=== PATIENT | male | born 1960 | race Caucasian/White ===

== ENCOUNTER 2019-09-05 09:18 | Outpatient (CLI) | payer BC, OTHER, SELFPAY ==
[2019-09-05 10:10] LABS: Bilirubin,Total 1.2 mg/dL (0.00-1.00)
== END 2019-09-05 09:19 | disposition home or self-care (01) ==
LOC: CHSLAB 09:21
PROVIDERS: PCP Family Medicine; Visit Provider Family Medicine
DX: R17 Unspecified jaundice (principal)
CPT/HCPCS: 36415; 82247

== ENCOUNTER 2020-01-02 09:03 | Outpatient (CLI) | payer BC, OTHER, SELFPAY ==
[2020-01-02 09:24] LABS: Hemoglobin A1C 5.9 % (<5.7)
[2020-01-02 09:48] LABS: Alanine Aminotransferase 32 U/L (16-63); Albumin Level 3.7 g/dL (3.4-5.0); Alkaline Phosphatase 86 U/L (46-116); Aspartate Amino Transferase 21 U/L (15-37); Bilirubin Direct 0.2 mg/dL (0-0.2); Bilirubin,Total 1.1 mg/dL (0.00-1.00); Blood Urea Nitrogen 22 mg/dL (7-18); Calcium 9.1 mg/dL (8.5-10.1); Carbon Dioxide 32 mmol/L (21-32); Chloride 103 mmol/L (98-108); Estimated Glomerular Filt Rate > 60; Glucose 92 mg/dL (70-99); Osmolality Calculated 295 mOsm/kg (285-295); Sodium 141 mmol/L (136-145); Total Protein 7.1 g/dL (6.4-8.2)
== END 2020-01-02 09:04 | disposition home or self-care (01) ==
LOC: CHSLAB 09:05
PROVIDERS: PCP Family Medicine; Visit Provider Family Medicine
DX: R73.01 Impaired fasting glucose (principal); I10 Essential (primary) hypertension; R17 Unspecified jaundice
CPT/HCPCS: 36415; 80053; 82248; 83036

== ENCOUNTER 2020-04-01 11:54 | Outpatient (CLI) | payer BC, OTHER, SELFPAY ==
--- NOTE | ~2020-04-01 | XR_ITS ---
XR shoulder LT min 2V DATE: 04/01/2020 12:27 INDICATION: Left shoulder pain following bladder injury TECHNIQUE: 4 views COMPARISON: None FINDINGS: No fracture, dislocation, periosteal reaction or bone destruction or abnormal soft tissue c alcification of the left shoulder. IMPRESSION: No significant abnormality Reviewed, dictated and finalized at location A. IMPRESSION: No significant abnormality
== END 2020-04-01 11:55 | disposition home or self-care (01) ==
PROVIDERS: PCP Family Medicine
DX: M25.512 Pain in left shoulder (principal)
CPT/HCPCS: 73030

== ENCOUNTER 2020-08-12 07:37 | Outpatient (CLI) | payer BC, OTHER, SELFPAY ==
[2020-08-12 08:43] LABS: Hemoglobin A1C 5.6 % (<5.7)
[2020-08-12 09:31] LABS: Alanine Aminotransferase 36 U/L (16-63); Albumin Level 3.7 g/dL (3.4-5.0); Alkaline Phosphatase 86 U/L (46-116); Anion Gap 7 mmol/L (8-16); Aspartate Amino Transferase 22 U/L (15-37); Bilirubin Direct 0.3 mg/dL (0-0.2); Bilirubin,Total 1.4 mg/dL (0.00-1.00); Blood Urea Nitrogen 21 mg/dL (7-18); Calcium 8.7 mg/dL (8.5-10.1); Carbon Dioxide 30 mmol/L (21-32); Chloride 105 mmol/L (98-108); Cholesterol 156 mg/dL (0-200); Estimated Glomerular Filt Rate > 60; Glucose 98 mg/dL (70-99); HDL Direct 59 mg/dL (40-60); LDL Cholesterol Calculated 83 mg/dL (<130); Osmolality Calculated 297 mOsm/kg (285-295); Potassium 4.2 mmol/L (3.5-5.1); Prostate Specific Antigen 4.1 ng/mL (< OR = 4.0); Sodium 142 mmol/L (136-145); Total Protein 6.8 g/dL (6.4-8.2); Triglycerides 70 mg/dL (0-150)
== END 2020-08-12 07:38 | disposition home or self-care (01) ==
PROVIDERS: PCP Family Medicine; Visit Provider Family Medicine
DX: R73.01 Impaired fasting glucose (principal); Z12.5 Encounter for screening for malignant neoplasm of prostate; R17 Unspecified jaundice; I10 Essential (primary) hypertension; E78.5 Hyperlipidemia, unspecified
CPT/HCPCS: 36415; 80053; 80061; 82248; 83036; 84153; G0103

== ENCOUNTER 2020-09-04 12:17 | Outpatient (CLI) | payer BC, OTHER, SELFPAY ==
[2020-09-04 13:09] LABS: Anion Gap 5 mmol/L (8-16); Blood Urea Nitrogen 23 mg/dL (7-18); Calcium 9.6 mg/dL (8.5-10.1); Carbon Dioxide 31 mmol/L (21-32); Chloride 101 mmol/L (98-108); Estimated Glomerular Filt Rate > 60; Glucose 96 mg/dL (70-99); Osmolality Calculated 287 mOsm/kg (285-295); Potassium 4.1 mmol/L (3.5-5.1); Sodium 137 mmol/L (136-145)
== END 2020-09-04 12:18 | disposition home or self-care (01) ==
LOC: CHSLAB 12:21
PROVIDERS: PCP Family Medicine; Visit Provider Family Medicine
DX: I10 Essential (primary) hypertension (principal)
CPT/HCPCS: 36415; 80048

== ENCOUNTER 2020-09-29 15:05 | Outpatient (CLI) | payer BC, OTHER, SELFPAY ==
[2020-09-29 15:23] LABS: Appearance Urine Clear (Clear); Bilirubin Urine Negative (Negative); Color Urine Orange (Yellow); Glucose Urine UA Negative (Negative); Ketones Urine Negative (Negative); Leukocyte Esterase Ur Negative (Negative); Nitrate Urine Negative (Negative); Protein Urine Negative (Negative); Urobilinogen Urine 0.2 mg/dL (0.2-1.0); pH Urine 6.5 (5.0-8.0)
[2020-09-29 15:56] LABS: Add Urine Microscopic? YES; Blood Urine Trace-Lysed (Negative)
[2020-09-29 15:57] LABS: Bacteria Urine None seen /hpf; RBC Urine 0-2 /hpf (0-2); Squamous Epithelial Cell Urine Few /hpf (Few); WBC Urine 0-3 /hpf (0-3)
[2020-09-29 16:35] LABS: Prostate Specific Antigen 2.3 ng/mL (< OR = 4.0)
== END 2020-09-29 15:06 | disposition home or self-care (01) ==
LOC: CHSLAB 15:08
PROVIDERS: PCP Family Medicine; Visit Provider Urology
DX: N20.0 Calculus of kidney (principal); R97.20 Elevated prostate specific antigen [PSA]
CPT/HCPCS: 36415; 81001; 84153

== ENCOUNTER 2020-12-14 10:37 | Outpatient (CLI) | payer BC, OTHER, SELFPAY ==
[2020-12-14 11:45] LABS: Anion Gap 7 mmol/L (8-16); Blood Urea Nitrogen 25 mg/dL (7-18); Calcium 9.4 mg/dL (8.5-10.1); Carbon Dioxide 30 mmol/L (21-32); Chloride 102 mmol/L (98-108); Estimated Glomerular Filt Rate > 60; Glucose 94 mg/dL (70-99); Osmolality Calculated 292 mOsm/kg (285-295); Potassium 4.2 mmol/L (3.5-5.1); Sodium 139 mmol/L (136-145)
== END 2020-12-14 10:38 | disposition home or self-care (01) ==
LOC: CHSLAB 10:40
PROVIDERS: PCP Family Medicine; Visit Provider Family Medicine
DX: I10 Essential (primary) hypertension (principal)
CPT/HCPCS: 36415; 80048

== ENCOUNTER 2021-06-16 07:12 | Outpatient (CLI) | payer BC, OTHER, SELFPAY ==
[2021-06-16 07:43] LABS: Hemoglobin A1C 6.3 % (<5.7)
[2021-06-16 09:10] LABS: Alanine Aminotransferase 41 U/L (16-63); Albumin Level 3.6 g/dL (3.4-5.0); Alkaline Phosphatase 81 U/L (46-116); Anion Gap 7 mmol/L (8-16); Aspartate Amino Transferase 18 U/L (15-37); Bilirubin,Total 0.9 mg/dL (0.00-1.00); Blood Urea Nitrogen 16 mg/dL (7-18); Calcium 8.9 mg/dL (8.5-10.1); Carbon Dioxide 30 mmol/L (21-32); Chloride 103 mmol/L (98-108); Cholesterol 168 mg/dL (0-200); Estimated Glomerular Filt Rate > 60; Glucose 96 mg/dL (70-99); HDL Direct 52 mg/dL (40-60); LDL Cholesterol Calculated 96 mg/dL (<130); Osmolality Calculated 291 mOsm/kg (285-295); Potassium 4.2 mmol/L (3.5-5.1); Sodium 140 mmol/L (136-145); Total Protein 7.2 g/dL (6.4-8.2); Triglycerides 101 mg/dL (0-150)
== END 2021-06-16 07:13 | disposition home or self-care (01) ==
LOC: CHSLAB 07:15
PROVIDERS: PCP Family Medicine; Visit Provider Family Medicine
DX: E78.5 Hyperlipidemia, unspecified (principal); R73.01 Impaired fasting glucose; I10 Essential (primary) hypertension
CPT/HCPCS: 36415; 80053; 80061; 83036

== ENCOUNTER 2023-03-30 02:10 | Day surgery (SDC) | payer MEDICARE, BC, SELFPAY ==
[2023-03-21 14:44] VITALS: BMI 32.7
[2023-03-30 06:17] VITALS: BP 152/64; PULSE 66; RESP 18; TEMP 36.7; O2SAT 97
[2023-03-30] MEDS: LACTATED RINGERS 1,000 ML 150 ML IV CONT (06:21)
--- NOTE | 2023-03-30 07:20 | WPDANESEPPF ---
Anes - Initial Pre Proc Eval Procedure: Operation Date: 03/30/23 07:30 Proposed Procedures p Screening Colonoscopy - Adrian Hutchins DO Date/Time: 03/30/23 07:20 Surgeon: Adrian Hutchins DO Pre Op Diagnosis: neoplasm screening Patient Data Age: 63 Gender: M Height: 1.75 m Weight: 99.6 kg Last Vital Signs Temp 98.1 F 03/30/23 06:17 Pulse 66 03/30/23 06:17 Resp 18 03/30/23 06:17 BP 152/64 H 03/30/23 06:17 Pulse Ox 97 03/30/23 06:17 O2 Del Method Room Air 03/30/23 06:17 Allergies Allergy/AdvReac Type Severity Reaction Status Date / Time No Known Allergies Allergy Verified 03/30/23 06:16 Home Medications Medication Instructions Recorded Confirmed Type amlodipine 10 mg tablet 10 mg PO DAILY 03/21/23 03/30/23 History aspirin 81 mg capsule 81 mg PO 3XW 03/21/23 03/30/23 History atorvastatin 10 mg tablet 10 mg PO DAILY 03/21/23 03/30/23 History irbesartan 300 mg tablet 300 mg PO DAILY 03/21/23 03/30/23 History Patient hx anesthesia problems: none Family hx anesthesia problems: none Results Review: All pre-operative results and documents have been reviewed as part of the pre-operative evaluation. [facility] Social History Social History (System 11/26/19 @ 13:15 by Heydi Schmitt) Smoking status: Former smoker Tobacco type: cigarettes Alcohol intake: never Substance use: never Substance use type: does not use Living arrangements: with family Spiritual care concerns: No Anes - Eval Final PreProcedure Day of Procedure 03/30/23 07:20 Patient weight: normal Heart: regular rate and rhythm Lungs: clear to auscultation Airway: Mallampati scale class II Neurological: alert and oriented Last oral intake: >/= 8 hours ASA classification: II Emergent: no Anesthetic plan: proceed Anesthesia type and monitoring: general GIVS and standard monitoring Results Review: All pre-operative results and documents have been reviewed as part of the pre-operative evaluation. Informed Consent: The patient's anesthetic plan and its attendant risks and benefits were discussed with the patient/family/POA. Questions were solicited and answers provided to the satisfaction of the patient/family/POA.
--- NOTE | 2023-03-30 07:38 | PM.IMHP ---
H&P: HPI History of Present Illness Date/Time: 03/30/23 07:38 Chief Complaint: Screening for colorectal cancer, history of colon polyps, family history of colon Narrative: this is a 63-year-old man who presents for colonoscopy. His last colonoscopy was about 5 or 6 years ago. He denies any hematochezia or melena. He does have a history of polyps and a family history of colon cancer in his father. Review of Systems Review of Systems: All systems reviewed & are unremarkable except as noted in HPI and below Constitutional: Constitutional: Denies chills, Denies fever(s), Denies headache(s) and Denies weight loss Eyes: Eyes: Denies change in vision ENT: Denies dizziness, Denies headache(s), Denies neck mass and Denies throat swelling Cardiovascular: Cardiovascular: Denies chest pain, Denies lightheadedness and Denies dyspnea Respiratory: Respiratory: Denies cough, Denies dyspnea and Denies wheezing Gastrointestinal: Gastrointestinal: Denies abdominal pain, Denies change in bowel habits, Denies nausea and Denies vomiting Genitourinary: Genitourinary: Denies hematuria and Denies dysuria Musculoskeletal: Musculoskeletal: Reports as per HPI Integumentary/Breasts: Skin/Breast: Reports as per HPI Neurologic: Denies dizziness and Denies headache(s) Allergic/Immunologic: Allergic/Immunologic: Denies throat swelling and Denies wheezing [facility] Social History Social History (System 11/26/19 @ 13:15 by Heydi Schmitt) Smoking status: Former smoker Tobacco type: cigarettes Alcohol intake: never Substance use: never Substance use type: does not use Living arrangements: with family Spiritual care concerns: No Meds Home Medications and Allergies Home Medications Medication Instructions Recorded Confirmed Type amlodipine 10 mg tablet 10 mg PO DAILY 03/21/23 03/30/23 History aspirin 81 mg capsule 81 mg PO 3XW 03/21/23 03/30/23 History atorvastatin 10 mg tablet 10 mg PO DAILY 03/21/23 03/30/23 History irbesartan 300 mg tablet 300 mg PO DAILY 03/21/23 03/30/23 History Allergies Allergy/AdvReac Type Severity Reaction Status Date / Time No Known Allergies Allergy Verified 03/30/23 06:16 Vital Signs Vital Signs - 24 hr 03/30/23 06:17 Temperature 36.7 C Pulse Rate 66 Respiratory Rate 18 Blood Pressure 152/64 H Pulse Oximetry 97 Oxygen Delivery Room Air Exam Const: General: no acute distress and alert Orientation/consciousness: patient oriented x3 HENMT: Head: normocephalic and atraumatic Ears: hearing grossly normal bilaterally Face/Nose/Sinus: Normal nares present Mouth: Yes Normal oral and palatal mucosa present Eyes: Periorbital: periorbital findings normal Sclera: sclerae normal EOM: EOMs intact bilaterally Neck: Neck: normal visual inspection, no lymphadenopathy and trachea midline Chest: Chest palpation & inspection: normal inspection of the chest Resp: Effort & Inspection: normal respiratory effort Auscultation: clear to auscultation bilaterally Cardio: Jugular venous distension: no JVD Rate: regular rate Rhythm: regular rhythm Heart sounds: S1 normal heart sound present and S2 normal heart sound present Peripheral pulses: Peripheral pulses 2+ throughout GI: Inspection: normal to inspection GI Palp: Yes Soft to palpation, No Tenderness to palpation present (GI), No Guarding due to palpation present (GI) and No Rebound tenderness present Percussion: Yes normal to percussion Auscultation: normal bowel sounds : General: Yes no CVA tenderness Back/Spine/Pelvis: Back: no CVA tenderness Neuro: General: patient oriented x3, no focal motor deficits and CN's II-XI intact bilaterally Cognition (Neuro): normal cognition Speech: normal speech Motor exam (neuro): 5/5 motor strength present throughout Extrem: General: capillary refill normal and no clubbing, cyanosis or edema Assessment and Plan Assessment and plan (1) Family history of colon cancer: C
[2023-03-30 07:57] VITALS: BP 111/50; PULSE 55; RESP 21; O2SAT 95
[2023-03-30 08:07] VITALS: BP 124/52; PULSE 51; RESP 17; O2SAT 96
[2023-03-30 08:17] VITALS: BP 129/56; PULSE 53; RESP 22; O2SAT 99
== END 2023-03-30 08:27 | disposition home or self-care (01) ==
PROVIDERS: PCP Family Medicine; Visit Provider Surgery
PROC: 0DJD8ZZ Inspection of Lower Intestinal Tract, Via Natural or Artificial Opening Endoscopic (ICD-10-PCS; CPT 45378; principal; 2023-03-30 07:30)
DX: Z12.11 Encounter for screening for malignant neoplasm of colon (principal); D12.0 Benign neoplasm of cecum; Z80.0 Family history of malignant neoplasm of digestive organs; Z87.891 Personal history of nicotine dependence; Z79.82 Long term (current) use of aspirin
CPT/HCPCS: 45380; 88305; J2704; J7120